=== PATIENT | male | born 1945 | race Caucasian/White ===

== ENCOUNTER → 2022-05-31 15:07 | Outpatient (CLI) | payer MEDICARE, BC, SELFPAY ==
--- NOTE | 2022-05-31 | DI.ECHO.S_ITS ---
[facility]---------+ [facility] +---------+ : : [address] : [address] : : : : [id number] : : : : Phone: [phone]---------+ Echocardiogram Report + + :Name: KIRIT QUINTANILLA Study Date: 05/31/2022 Height: 70 in : :[facility] ReadingLocation: Weight: 215 lb : : Gender: Male BSA: 2.2 m2 : :: 1945 Age: 77 yrs BP: 136/81 mmHg: :Reason For Study: EDEMA : :Ordering Physician: AMRIT, : :CHELSIE Performed By: Atul Monreal : :Referring: CHELSIE MARCUS : + + Interpretation Summary 1) Normal left ventricular thickness, size, wall motion, and systolic function (EF 55-60%). 2) Normal right ventricular size and function. 3) No significant valvular abnormalities. 4) Injection of contrast documented no interatrial shunt. 5) No prior Echo available for comparison. Procedure: A two-dimensional transthoracic echocardiogram with color flow and Doppler was performed. The study quality was technically adequate. There is no prior echocardiogram noted for this patient. A saline contrast injection was performed to assess for cardiac shunting. The patient was in normal sinus rhythm during the exam. Left Ventricle: The left ventricle is normal in size and wall thickness. Left ventricular systolic function is normal. The ejection fraction is estimated to be 55-60%. There are no focal wall motion abnormalities. Diastolic function could not be accurately assessed due to unobtainable data. Right Ventricle: The right ventricle is normal in size and function. Atria: Both atria are normal in size. The interatrial septum grossly appears intact with no obvious evidence for an atrial septal defect. The atrial septum is aneurysmal. Injection of contrast documented no interatrial shunt. Mitral Valve: The mitral valve is normal in structure and function. There is trace mitral regurgitation. Aortic Valve: There is mild aortic valve sclerosis. The aortic valve is trileaflet. The aortic valve opens well. There is no aortic valve stenosis. There is trace aortic regurgitation. Tricuspid Valve: The tricuspid valve is normal in structure and function. There is trace tricuspid regurgitation. Pulmonary artery pressures cannot be estimated because of the lack of a measurable TR jet velocity. Pulmonic Valve: The pulmonic valve is normal in structure and function. There is a trace or physiologic amount of pulmonic regurgitation. Great Vessels: The aortic root is normal size. The dimensions of the ascending aorta are normal. The IVC is of normal diameter and collapses greater than 50% with a sniff. This suggests a low right atrial pressure of 3 mm Hg. Pericardium/ Pleura There is no pericardial effusion. There is no pleural effusion. MMode/2D Measurements & Calculations LVIDd: 5.3 cm LVOT diam: 2.0 cm LVIDs: 3.7 cm Ao root diam: 2.9 cm FS: 30.2 % asc Aorta Diam: 3.4 cm IVSd: 1.1 cm LVPWd: 1.0 cm LV monae. diameter/BSA (cm/m^2): 2.5 LV sys. diameter/BSA (cm/m^2): 1.7 LA dimension: 3.6 cm RA long axis: 5.8 cm LA A2 area: 19.1 cm2 LA A4 area: 19.4 cm2 LA length (vol): 5.7 cm LA vol: 55.6 ml LA vol index: 25.8 ml/m2 TAPSE_phl: 2.4 cm Doppler Measurements & Calculations Ao V2 max: 187.0 cm/sec LVOT Max Kemar: 124.0 cm/sec Ao V2 mean: 122.0 cm/sec LV V1 max P.2 mmHg Ao max P.0 mmHg LV V1 VTI: 28.0 cm Ao mean P.0 mmHg STACIE(I,D): 2.5 cm2 Ao V2 VTI: 35.0 cm STACIE(V,D): 2.1 cm2 sev ratio: 0.80 STACIE indexed to BSA (cm^2/m^2): 1.2 MV E max kemar: 78.1 cm/sec SV(LVOT): 88.0 ml MV A max kemar: 94.1 cm/sec MV E/A: 0.83 Med Peak E' Kemar: 7.8 cm/sec E/E' med: 10.0 Lat Peak E' Kemar: 8.2 cm/sec E/E' lat: 9.5 E/e' average: 9.7 MV dec time: 0.21 sec AV VR_phl: 0.66 MV P1/2t-pr_phl: 61.0 msec STACIE(VTI)/BSA_phl: 1.2 Reading Physician:05:11 PM
== END ==
PROVIDERS: PCP Internal Medicine; Referring Provider Internal Medicine; Visit Provider Internal Medicine
DX: R60.0 Localized edema (principal)
CPT/HCPCS: 93306